=== PATIENT | female | born 1950 | race Caucasian/White ===

== ENCOUNTER → 2017-09-17 | Day surgery (SDC) | payer BC, MEDICARE ==
[2017-09-15 14:40] LABS: BASOPHILS # (AUTO) 0.1 (0.0-0.1); BASOPHILS % 0.7 % (0.0-1.0); EOSINOPHILS # (AUTO) 0.2 (0.0-0.4); EOSINOPHILS % 2.2 % (0.0-6.0); HEMATOCRIT 42.8 % (34.2-44.1); HEMOGLOBIN 14.1 g/dL (12.0-16.0); LYMPHOCYTES % 29.1 % (18.0-39.1); MEAN CORPUSCULAR HEMOGLOBIN 29.7 pg (28-32); MEAN CORPUSCULAR HGB CONC 32.9 g/dL (31-35); MEAN CORPUSCULAR VOLUME 90.3 fL (81-99); MONOCYTES # (AUTO) 0.5 (0.2-0.8); NEUTROPHILS % 59.7 % (38.7-80.0); PLATELET COUNT 239 x10e3/uL (140-360); RED BLOOD COUNT 4.74 x10e6/uL (3.6-5.1); RED CELL DISTRIBUTION WIDTH 12.7 % (11.7-14.4)
[~2017-09-17] MED LIST: COLESTIPOL HCL1 GM PO; CYTOMEL5 MCG PO; DEXILANT60 MG PO; FENTANYL CITRATE/PF 100MCG/2 ML INJ ONE; FLAGYL250 MG PO; HYOSCYAMINE SULFATE 0.5 MG/ML AMP ONE; LEVOTHYROXINE75 MCG PO; LIDOCAINE HCL 2% LOCAL INJ 5 ML SDV VIAL INJ ONE; LIOTHYRONINE SO5 MCG PO; METOCLOPRAMIDE10 MG PO; METOPROLOL TART50 MG PO; MIDAZOLAM HCL 2 MG/2 ML VIAL ONE; PROPOFOL IV EMULSION 10 MG/ML 50 ML VIAL ONE; RANITIDINE HCL300 MG PO; SUCRALFATE1 GM PO; linzess PO
[2017-09-17 13:55] LABS: WBC,FECAL (FECAL LACTOFERRIN) NEGATIVE (NEGATIVE)
[2017-09-17 15:07] LABS: C DIFFICILE TOXIN A&B AMP PROB NEGATIVE (NEGATIVE)
--- NOTE | 2017-09-18 11:43 | Operative Report ---
DATE OF PROCEDURE: September 17, 2017 PROCEDURES PERFORMED: 1. Esophagogastroduodenoscopy with biopsies and polypectomy. 2. Colonoscopy with biopsies and polypectomy. REFERRING PHYSICIAN: Dr. Pepe Mojica INDICATIONS FOR EGD: History of heartburn, indigestion, bloating. INDICATIONS FOR COLONOSCOPY: Colorectal cancer screening. Father and brother with colon cancer. Personal history of colon polyps. MEDICATION: Patient was done under MAC. Please see anesthesiologist note. PROCEDURE IN DETAIL: With the patient in left lateral decubitus position, the flexible fiberoptic Olympus gastroscope was introduced into the esophagus under direct visualization without any difficulty. There was some patchy erythema noted in distal esophagus. The scope was then advanced with ease into the stomach traversing a very large hiatal hernia approximately 8 cm in size. The mucosa overlying the antrum revealed some diffuse erythema and low-grade edema, and biopsies were obtained and sent to stain for H. pylori. Multiple polyps were noted in the body of the stomach, they were hyperplastic appearing and several were partially excised with cold biopsy forceps. The pylorus was of normal contour and shape. It was intubated with ease, and the scope was advanced all the way to the second portion of the duodenum. Biopsies were obtained from the proximal second portion to rule out sprue considering patient's history of diarrhea. The mucosa overlying the duodenal bulb appeared to be within normal limits. The scope was then withdrawn back into the stomach and retroflexed, and the previously described hiatal hernia was also noted in the retroflexed position. The scope was then straightened out. The stomach was decompressed. The scope was subsequently withdrawn. Patient tolerated the procedure well. IMPRESSION: 1. Distal esophagitis. 2. Large hiatal hernia, 8 cm in size. 3. Gastritis, biopsied. Biopsies sent to stain for Helicobacter pylori. 4. Gastric polyps, body, some partially excised with cold biopsy forceps. 5. Rule out sprue. PLAN: Follow up histology. Increase Dexilant to 60 mg 1 p.o. a.c. b.i.d. Patient was then turned around. After adequate lubrication of the anal canal, a flexible fiberoptic Olympus colonoscope was inserted into the rectum with ease and advanced all the way to the cecum. Mucosa overlying the cecum appeared to be within normal limits. The ileocecal valve was intubated, and the scope was advanced into her terminal ileum. Biopsies were obtained. The scope was then withdrawn back into the colon. It was then withdrawn slowly and 1 polyp was snared, 1 polyp was hot biopsied from the ascending colon. Three polyps were snared from the transverse colon. Mild patchy inflammatory changes were noted in the left colon and the rectum, multiple random biopsies were obtained. Anastomosis was noted at 30 cm from the anal verge and was intact. Three polyps were hot biopsied from the sigmoid colon. The scope was then retroflexed into the distal rectum, and small internal hemorrhoids were noted, none of which was actively bleeding. The scope was then straightened out. The rectosigmoid area as well as the distal rectal area were decompressed. The scope was subsequently withdrawn after securing an adequate stool specimen that was sent for the appropriate stool studies. Patient tolerated the procedure well. IMPRESSION: 1. Ascending colon polyps x2, 1 snared, 1 hot biopsied. 2. Transverse colon polyps x3, snared. 3. Mild patchy left-sided colitis, random biopsies obtained. 4. Anastomosis intact, sigmoid colon. 5. Proctitis, mild. 6. Internal hemorrhoids, none actively bleeding. PLAN: Follow up histology. Follow up stool studies. Initiate Bentyl 10 mg 1 p.o. t.i.d. VSL#3 DS 1 p.o. every day. Patient will need a followup colonoscopy in 1 year considering her family history. Job#: [id number] cc:PEPE MOJICA MD
== END | disposition home or self-care (01) ==
LOC: OR 10:38
PROVIDERS: ATTEND Internal Medicine Gastroenterology
DX: Z12.11 Encounter for screening for malignant neoplasm of colon (principal); D12.2 Benign neoplasm of ascending colon; D12.3 Benign neoplasm of transverse colon; K31.7 Polyp of stomach and duodenum; K29.70 Gastritis, unspecified, without bleeding; K51.50 Left sided colitis without complications; Z98.0 Intestinal bypass and anastomosis status; K20.9 Esophagitis, unspecified; K62.89 Other specified diseases of anus and rectum; K59.00 Constipation, unspecified; K21.9 Gastro-esophageal reflux disease without esophagitis; K44.9 Diaphragmatic hernia without obstruction or gangrene; K64.8 Other hemorrhoids; F41.9 Anxiety disorder, unspecified; Z01.810 Encounter for preprocedural cardiovascular examination; Z01.812 Encounter for preprocedural laboratory examination; Z80.0 Family history of malignant neoplasm of digestive organs
CPT/HCPCS: 36415; 43239; 45380; 45384; 45385; 83630; 83993; 85025; 87045; 87177; 87328; 87493; 93005; J1980; J2001; J2250

== ENCOUNTER → 2017-10-26 | Outpatient (CLI) | payer BC, MEDICARE ==
[~2017-10-26] MED LIST changes: -FENTANYL CITRATE/PF 100MCG/2 ML INJ ONE; -HYOSCYAMINE SULFATE 0.5 MG/ML AMP ONE; -LIDOCAINE HCL 2% LOCAL INJ 5 ML SDV VIAL INJ ONE; -MIDAZOLAM HCL 2 MG/2 ML VIAL ONE; -PROPOFOL IV EMULSION 10 MG/ML 50 ML VIAL ONE
--- NOTE | 2017-10-26 09:46 | Diagnostic Imaging Report ---
PROCEDURE:ABDOMINAL ULTRASOUND COMPARISON:02/09/2017 CT abdomen and pelvis. INDICATIONS:Abdomen Pain TECHNIQUE: Eckert-scale and color sonographic images were obtained of the abdomen in transverse and sagittal planes. FINDINGS: Liver: 15.4 cm in length in the right midclavicular line. Ovoid anechoic structures are identified scattered throughout the left lobe as shown on comparison CT. Normal parenchymal echogenicity. No intrahepatic biliary ductal dilatation. Main portal vein: 1.1 cm in caliber, hepatopetal flow Gallbladder: Surgically removed. Common Bile Duct: 0.5 cm in caliber. Right kidney: 10.2 cm in length, normal renal cortical echogenicity without hydronephrosis or calculus. Left kidney: 11 cm in length, normal renal cortical echogenicity without hydronephrosis or calculus. Spleen: 8.7 cm in length. Uniform parenchymal echotexture. Punctate calcifications are again noted. Pancreas: The visualized portions are unremarkable. Inferior vena cava: Patent Aorta: Non-aneurysmal Ascites: None CONCLUSION: Multiple hepatic cysts. Status post cholecystectomy. Otherwise unremarkable abdominal ultrasound. Dictated by: Venkatesh Cheng M.D. on 10/26/2017 at 9:55 Electronically approved by: Venkatesh Cheng M.D. on 10/26/2017 at 9:55
== END ==
LOC: US 08:49
PROVIDERS: ATTEND Internal Medicine Gastroenterology
DX: R10.9 Unspecified abdominal pain (principal)
CPT/HCPCS: 76700

== ENCOUNTER → 2018-06-02 | Outpatient (CLI) | payer BC, MEDICARE | LOC: MAMMO 10:23 | PROVIDERS: ATTEND Internal Medicine | DX: Z12.31 Encounter for screening mammogram for malignant neoplasm of breast (principal) | CPT/HCPCS: 77067 ==

== ENCOUNTER → 2019-08-20 | Outpatient (CLI) | payer BC, MEDICARE ==
[~2019-08-20] MED LIST changes: +DIATRIZOATE MEGL/DIATRIZOA SOD 30 ML BTL PO ONE; +IOPAMIDOL 370 MG/ML 200 ML INFUS..BTL INJ ONE; +SODIUM CHLORIDE 0.9% 50ML 50 ML ONE
[2019-08-20 14:32] LABS: BLOOD UREA NITROGEN 15 mg/dL (7-26); BUN/CREATININE RATIO 21 (6-25); CREATININE, SERUM 0.73 mg/dL (0.57-1.11); EST GLOMERULAR FILTRATION RATE > 60 ML/MIN (60-)
--- NOTE | 2019-08-20 16:08 | Diagnostic Imaging Report ---
EXAM: CT Abdomen and Pelvis WITH intravenous contrast INDICATION: Right upper quadrant pain COMPARISON: None. TECHNIQUE: Abdomen and pelvis were scanned utilizing a multidetector helical scanner from the lung base to the pubic symphysis after administration of IV contrast. Coronal and sagittal reformations were obtained. Routine protocol was performed. Scan was performed during portal venous phase. IV CONTRAST: 100mL of Isovue 370 ORAL CONTRAST: Gastrografin RADIATION DOSE: Total DLP: 367.9 mGy*cm Dose modulation, iterative reconstruction, and/or weight based adjustment of the mA/kV was utilized to reduce the radiation dose to as low as reasonably achievable. FINDINGS: LOWER THORAX: Large sliding hiatal hernia with approximately half of the stomach above the diaphragm. HEPATOBILIARY: Diffuse hepatic steatosis. Multiple subcentimeter right and left hepatic hypodensities measure soft tissue attenuation and are too small to adequately characterize on this single phase study. No biliary ductal dilation. Status post cholecystectomy. SPLEEN: Subcentimeter calcified granulomas in the nonenlarged spleen. PANCREAS: No focal masses or ductal dilatation. ADRENALS: No adrenal nodules. KIDNEYS/URETERS: No hydronephrosis, stones, or solid mass lesions. PELVIC ORGANS/BLADDER: Unremarkable. PERITONEUM / RETROPERITONEUM: No free air or fluid. LYMPH NODES: No lymphadenopathy. VESSELS: Atherosclerotic calcifications of the nonaneurysmal abdominal aorta and major branches. GI TRACT: No abnormal bowel wall thickening. No bowel obstruction. Postoperative changes of the colon with left colon anastomosis. BONES AND SOFT TISSUES: No acute fracture or dislocation. No suspicious lytic or blastic lesions. Degenerative changes of the visualized spine. IMPRESSION: Diffuse hepatic steatosis. Multiple subcentimeter right and left hepatic hypodensities measure soft tissue attenuation but are too small to adequately characterize on this single phase study. If there is history of primary malignancy and concern for metastatic disease, recommend MRI of the liver with and without gadolinium contrast. Large sliding hiatal hernia with approximately half of the stomach above the diaphragm. Signed by: Padmaja Chavira MD on 08/20/2019 4:05 PM
== END ==
LOC: CT 13:38
PROVIDERS: ATTEND Internal Medicine Gastroenterology
DX: R10.11 Right upper quadrant pain (principal); K44.9 Diaphragmatic hernia without obstruction or gangrene; K76.0 Fatty (change of) liver, not elsewhere classified
CPT/HCPCS: 36415; 74177; 82565; 84520; Q9967

== ENCOUNTER → 2019-09-06 | Outpatient (CLI) | payer BC, MEDICARE ==
[~2019-09-06] MED LIST changes: -DIATRIZOATE MEGL/DIATRIZOA SOD 30 ML BTL PO ONE; +GADOBENATE DIMEGLUMINE 1 ML IV ONE; -IOPAMIDOL 370 MG/ML 200 ML INFUS..BTL INJ ONE
[2019-09-06 14:00] LABS: BLOOD UREA NITROGEN 17 mg/dL (7-26); BUN/CREATININE RATIO 25 (6-25); CREATININE, SERUM 0.68 mg/dL (0.57-1.11); EST GLOMERULAR FILTRATION RATE > 60 ML/MIN (60-)
--- NOTE | 2019-09-07 09:02 | Diagnostic Imaging Report ---
MRI OF THE ABDOMEN CLINICAL HISTORY: Multiple right and left hepatic hypodensities TECHNIQUE: Multiplanar and multisequence MR images of the abdomen are obtained before and after intravenous contrast administration. COMPARISON: CT of the abdomen and pelvis performed 08/20/2019 DISCUSSION: LIVER: There is diffuse hepatic steatosis. Multiple hepatic cysts are noted in both lobes of the liver which corresponds to the hypodense lesion seen on recent abdominal CT. The largest cyst is in the left hepatic lobe and measures 1.5 cm in diameter. No suspicious hepatic lesions are identified. There is no enhancement postcontrast administration. BILIARY: No intrahepatic or extrahepatic dilatation. Sepsis cholecystectomy. PANCREAS: No focal masses or ductal dilatation. SPLEEN: Unremarkable. ADRENALS: No adrenal nodules. KIDNEYS: Normal in size. No hydronephrosis or renal masses. LYMPH NODES: No lymphadenopathy VESSELS: Patent portal vein. The abdominal aorta is nonaneurysmal. BONES AND SOFT TISSUES: No suspicious lesions. IMPRESSION: Multiple hepatic cysts. No suspicious hepatic lesions identified. Signed by: Jamie Murphy MD on 09/07/2019 8:58 AM
== END ==
LOC: MRI 12:59
PROVIDERS: ATTEND Internal Medicine Gastroenterology
DX: K76.89 Other specified diseases of liver (principal)
CPT/HCPCS: 36415; 74183; 82565; 84520; A9577

== ENCOUNTER → 2019-12-21 | Outpatient (CLI) | payer BC, MEDICARE ==
[~2019-12-21] MED LIST changes: +ALPRAZOLAM0.25 MG PO; +ATORVASTATIN CA20 MG PO; -GADOBENATE DIMEGLUMINE 1 ML IV ONE; -SODIUM CHLORIDE 0.9% 50ML 50 ML ONE
[2019-12-21 09:00] LABS: BASOPHILS # (AUTO) 0.1 (0.0-0.1); EOSINOPHILS # (AUTO) 0.1 (0.0-0.4); EOSINOPHILS % 1.3 % (0.0-6.0); HEMATOCRIT 45.4 % (34.2-44.1); HEMOGLOBIN 14.5 g/dL (12.0-16.0); LYMPHOCYTES # (AUTO) 2.1 (1.0-3.2); LYMPHOCYTES % 29.6 % (18.0-39.1); MEAN CORPUSCULAR HEMOGLOBIN 29.6 pg (28-32); MEAN CORPUSCULAR HGB CONC 31.9 g/dL (31-35); MEAN CORPUSCULAR VOLUME 92.7 fL (81-99); MONOCYTES # (AUTO) 0.6 (0.2-0.8); MONOCYTES % 8.6 % (4.4-11.3); NEUTROPHILS # (AUTO) 4.2 (2.1-6.9); NEUTROPHILS % 58.9 % (38.7-80.0); PLATELET COUNT 284 x10e3/uL (140-360); RED CELL DISTRIBUTION WIDTH 12.8 % (11.7-14.4)
--- NOTE | 2019-12-21 09:10 | Diagnostic Imaging Report ---
EXAMINATION: CHEST 2 VIEWS INDICATION: Pre-operative COMPARISON: Abdomen and pelvis CT of 08/20/2019 FINDINGS: LINES/TUBES:None LUNGS:The lungs are hyperinflated. Bilateral emphysematous changes. 7 mm right lower lobe calcified granuloma. Mild biapical pleural parenchymal thickening/scarring. No focal consolidation or pulmonary edema. PLEURA:No pleural effusion or pneumothorax. MEDIASTINUM:The cardiomediastinal silhouette appears normal in size and shape. Atherosclerotic calcifications of the thoracic aorta. BONES/SOFT TISSUES:No acute osseous injury. Left shoulder arthroplasty hardware. ABDOMEN:No free air under the diaphragm. IMPRESSION: Hyperinflated lungs with emphysematous changes. No focal pneumonia or pulmonary edema. Signed by: Padmaja Chavira MD on 12/21/2019 9:07 AM
[2019-12-21 09:42] LABS: ANION GAP 12.6 mmol/L (8-16); BLOOD UREA NITROGEN 16 mg/dL (7-26); BUN/CREATININE RATIO 21 (6-25); CALCIUM 9.7 mg/dL (8.4-10.2); CARBON DIOXIDE 25 mmol/L (22-29); CHLORIDE 104 mmol/L (98-107); CREATININE, SERUM 0.75 mg/dL (0.57-1.11); EST GLOMERULAR FILTRATION RATE > 60 ML/MIN (60-); GLUCOSE 84 mg/dL (74-118); POTASSIUM 3.6 mmol/L (3.5-5.1); SODIUM 138 mmol/L (136-145)
== END ==
LOC: RAD 05:00 → EDSTATUS 12-24 07:30
PROVIDERS: ATTEND Surgery
DX: Z01.818 Encounter for other preprocedural examination (principal); K44.9 Diaphragmatic hernia without obstruction or gangrene; K21.9 Gastro-esophageal reflux disease without esophagitis
CPT/HCPCS: 36415; 71046; 80048; 85025; 93005

== ENCOUNTER 2020-02-13 05:54 | Inpatient (IN) | payer BC, MEDICARE, OTHER ==
[2020-02-08 13:33] LABS: BASOPHILS # (AUTO) 0.1 (0.0-0.1); BASOPHILS % 0.7 % (0.0-1.0); EOSINOPHILS # (AUTO) 0.2 (0.0-0.4); EOSINOPHILS % 2.4 % (0.0-6.0); HEMOGLOBIN 12.8 g/dL (12.0-16.0); LYMPHOCYTES # (AUTO) 1.9 (1.0-3.2); LYMPHOCYTES % 27.7 % (18.0-39.1); MEAN CORPUSCULAR HEMOGLOBIN 29.1 pg (28-32); MEAN CORPUSCULAR VOLUME 90.9 fL (81-99); MONOCYTES # (AUTO) 0.6 (0.2-0.8); MONOCYTES % 9.3 % (4.4-11.3); NEUTROPHILS % 59.6 % (38.7-80.0); PLATELET COUNT 275 x10e3/uL (140-360); RED CELL DISTRIBUTION WIDTH 12.7 % (11.7-14.4)
[2020-02-08 13:54] LABS: ANION GAP 11.5 mmol/L (8-16); BLOOD UREA NITROGEN 16 mg/dL (7-26); BUN/CREATININE RATIO 24 (6-25); CALCIUM 9.5 mg/dL (8.4-10.2); CARBON DIOXIDE 28 mmol/L (22-29); CHLORIDE 105 mmol/L (98-107); CREATININE, SERUM 0.68 mg/dL (0.57-1.11); EST GLOMERULAR FILTRATION RATE > 60 ML/MIN (60-); GLUCOSE 90 mg/dL (74-118); POTASSIUM 4.5 mmol/L (3.5-5.1); SODIUM 140 mmol/L (136-145)
[~2020-02-13] VITALS: Ht 172.7 cm; Wt 76.8 kg
--- NOTE | 2020-02-13 07:12 | NUR ---
SPIRITUAL CARE - Pre-Surgery Assessment: Pt in bed. Pt reported supportive attention from family and friends. Intervention: I provided pastoral presence, hospitality, sympathetic listening, and prayer. I acquainted pt with availability of trestle mechanic while hospitalized. Outcome: Pt expressed appreciation for visit. No need for follow up indicated at this time. GERA [facility]udezlain Spiritual Care Department O: [phone]
[2020-02-13] MEDS ORDERED: BUPIVACAINE 0.25% 30ML SDV INJ ONE (12:36)
[2020-02-13] MEDS ORDERED: SUGAMMADEX SODIUM 200 MG/2 ML VIAL IV ONE (12:55)
[2020-02-13] MEDS ORDERED: PROMETHAZINE HCL (IM) 25 MG/ML VIAL ONE (13:34)
[2020-02-13] MEDS ORDERED: ONDANSETRON HCL INJ 2MG/ML 2ML 2 MG/ML VIAL ONE ×2 (13:42→18:29)
[2020-02-13] MEDS ORDERED: METOCLOPRAMIDE HCL 10 MG/2ML VIAL ONE (13:42)
[2020-02-13] MEDS ORDERED: FENTANYL CITRATE/PF 100MCG/2 ML INJ ONE ×2 (13:50→19:03)
[2020-02-13] MEDS ORDERED: MEPERIDINE HCL INJ 25 MG/ML VIAL ONE (13:52)
[2020-02-13] MEDS ORDERED: ONDANSETRON HCL INJ 2MG/ML 2ML 2 MG/ML VIAL IV PRN (14:15)
--- NOTE | 2020-02-13 16:09 | Operative Report ---
DATE OF PROCEDURE: 02/13/2020 SURGEON: Yahir Agee MD PREOPERATIVE DIAGNOSES: Large hiatal hernia with rotational gastric volvulus and gastroesophageal reflux disease. POSTOPERATIVE DIAGNOSES: Large hiatal hernia with rotational gastric volvulus and gastroesophageal reflux disease. OPERATION PERFORMED: Laparoscopic repair of large paraesophageal hiatal hernia with Dannielle fundoplication. ASSISTANTS: 1. Sandoval Agee MD. 2. MELISSA Mccormack. ANESTHESIA: General. COMPLICATIONS: None. ESTIMATED BLOOD LOSS: Minimal. DESCRIPTION OF PROCEDURE: With the patient lying in bed in the supine position under general endotracheal anesthesia, the abdomen was prepped with Betadine solution and draped in the usual manner. A Veress needle was introduced into the right upper quadrant and pneumoperitoneum was established without any difficulty. A 5 mm trocar was placed in the right upper quadrant. A 5 mm video laparoscope was placed into the intraabdominal cavity. Under direct vision, two 5 mm trocars were placed in the subxiphoid region. The laparoscopy revealed that there was some adhesions to the mid abdomen. There was a small hernia in the left upper abdomen exactly where we needed to put a trocar, so all of this adhesions were taken down. An 11 mm trocar was then placed in the left mid abdomen and right through the small hernia sac that she had and a 10 mm video laparoscope was placed into the intraabdominal cavity. The liver was then retracted upwardly. Laparoscopy at this point, revealed the fact that the patient had a huge hiatal hernia with the bulk of her stomach up in the chest and it was partially twisted. The stomach was then slowly and carefully brought down. The peritoneum overlying the right crura was then opened and the hernia sac was then slowly and carefully divided in a circumferential fashion. The excess of the hernia sac was resected. After this was done, we had good circumferential access to the esophagus and the hiatus. A large bougie had been placed in the stomach already. The hiatal hernia was then repaired by approximating the right and left crura posteriorly using interrupted sutures of [address] around revealed this had a satisfactory repair. Again, the hernia was very large. The left crura were of good quality. The right crura was reasonable, but was not as good. All of the short gastrics had previously been taken down with Harmonic Scalpel and at this point, we went ahead and proceeded to do the Dannielle fundoplication. The fundus of the stomach was then brought in retroesophageal region to the right side and a nice floppy Dannielle fundoplication was created with three sutures of 0 Ethibond, bringing one side of the fundus to the lower esophagus to the other side of the fundus, this gives a satisfactory fundoplication without any tension. The bougie was then removed. NG tube was placed in appropriate position. The whole area was thoroughly irrigated. All the excess fluid was aspirated and perfect hemostasis was ascertained. The pneumoperitoneum was then evacuated and all the trocars were removed under direct vision. The hernia in the left upper abdomen was then closed with interrupted [id number] of 0 Vicryl, all layers were infiltrated on the way out in all wounds with 0.25% Marcaine. Subcutaneous tissue was approximated with 3-0 Vicryl and the skin was closed with subcuticular 5-0 Vicryl. Benzoin, Steri-Strips, and Band-Aids were applied. The sponge, lap, and needle counts were correct. The patient tolerated the procedure well and returned to the recovery room in stable condition. MD TREMAINE Carpenter/VEL /[id number]
[2020-02-13 16:40] VITALS: BP 150/73
[2020-02-13 16:41] VITALS: BP 150/73
[2020-02-13] MEDS: SODIUM CHLORIDE 0.9% 250ML IRRIG IR SCH ×3 (16:42→21:39)
[2020-02-13] MEDS: SODIUM CHLORIDE 0.9% 1000ML 1,000 ML IV SCH (17:13)
[2020-02-13] MEDS: PANTOPRAZOLE 40 MG 10ML VIAL IV SCH (17:17)
[2020-02-13] MEDS ORDERED: CEFAZOLIN SOD 1 GM VIAL ONE (18:29)
[2020-02-13] MEDS ORDERED: ROCURONIUM BROMIDE 10 MG/ML 5ML VIAL IV ONE (18:29)
[2020-02-13] MEDS ORDERED: LIDOCAINE HCL 2% LOCAL INJ 5 ML SDV VIAL INJ ONE (18:29)
[2020-02-13] MEDS ORDERED: DEXAMETHASONE SOD PHOS INJ 4 MG/ML VIAL ONE (18:29)
[2020-02-13] MEDS ORDERED: LABETALOL HCL 5 MG/ML 20ML VIAL ONE (18:29)
[2020-02-13] MEDS ORDERED: SEVOFLURANE INHAL SOLN 250 ML PEN BTL ONE (18:29)
[2020-02-13] MEDS ORDERED: PROPOFOL IV EMULSION 10 MG/ML 20 ML VIAL ONE (18:29)
[2020-02-13] MEDS: HYDROMORPHONE 1MG/1ML INJ IV PRN (19:56)
[2020-02-13 20:00] VITALS: BP_SYST 111; BP_SYST 120; BP_DIAS 55
--- NOTE | 2020-02-13 20:09 | NUR ---
SPOKE TO MD Olman MOREIRA REGARDING C/O CHEST PAIN. NO NEW ORDERS RECEIVED.
--- NOTE | 2020-02-13 20:58 | NUR ---
SPOKE TO RESPIRATORY REGARDING NEED FOR IS.
--- NOTE | 2020-02-13 23:19 | NUR ---
SPOKE TO RESPIRATORY REGARDING NEED FOR IS.
[2020-02-14] VITALS (7 sets, daily range): BP systolic 121–151; BP diastolic 57–74
[2020-02-14] MEDS: HYDROMORPHONE 1MG/1ML INJ IV PRN ×3 (00:16→09:51)
--- NOTE | 2020-02-14 00:51 | NUR ---
PROVIDED TEACHING REGARDING IS. VERBALIZED UNDERSTANDING AND DEMONSTRATED CORRECT USE.
[2020-02-14] MEDS: SODIUM CHLORIDE 0.9% 1000ML 1,000 ML IV SCH ×3 (03:28→20:15)
[2020-02-14] MEDS: SODIUM CHLORIDE 0.9% 250ML IRRIG IR SCH ×5 (04:30→18:06)
--- NOTE | 2020-02-14 04:50 | NUR ---
PROVIDED SCHUSTER CARE VIA NADYA SOAP WIPES. TOLERATED WELL. NO ADVERSE SIGNS.
[2020-02-14 05:54] LABS: BASOPHILS % 0.2 % (0.0-1.0); EOSINOPHILS % 0.1 % (0.0-6.0); HEMATOCRIT 35.6 % (34.2-44.1); HEMOGLOBIN 11.4 g/dL (12.0-16.0); LYMPHOCYTES # (AUTO) 1.3 (1.0-3.2); LYMPHOCYTES % 13.9 % (18.0-39.1); MEAN CORPUSCULAR HEMOGLOBIN 29.2 pg (28-32); MEAN CORPUSCULAR VOLUME 91.3 fL (81-99); MONOCYTES # (AUTO) 0.9 (0.2-0.8); MONOCYTES % 9.8 % (4.4-11.3); NEUTROPHILS # (AUTO) 7.1 (2.1-6.9); NEUTROPHILS % 75.7 % (38.7-80.0); PLATELET COUNT 244 x10e3/uL (140-360); RED CELL DISTRIBUTION WIDTH 12.9 % (11.7-14.4)
[2020-02-14 06:02] LABS: ANION GAP 9.7 mmol/L (8-16); BLOOD UREA NITROGEN 8 mg/dL (7-26); BUN/CREATININE RATIO 14 (6-25); CALCIUM 7.9 mg/dL (8.4-10.2); CARBON DIOXIDE 24 mmol/L (22-29); CHLORIDE 107 mmol/L (98-107); CREATININE, SERUM 0.58 mg/dL (0.57-1.11); EST GLOMERULAR FILTRATION RATE > 60 ML/MIN (60-); GLUCOSE 108 mg/dL (74-118); POTASSIUM 3.7 mmol/L (3.5-5.1); SODIUM 137 mmol/L (136-145)
--- NOTE | 2020-02-14 07:08 | NUR ---
REPORT GIVEN TO [facility] NURSE. RESTING IN BED. AAOX3. NO SIGNS OF IV INFILTRATION. SR UPX2. BED LOCKED AND IN LOW POSITION. CALL LIGHT WITHIN REACH.
--- NOTE | 2020-02-14 07:08 | NUR ---
BEDSIDE SHIFT REPORT RECEIVED FROM PM NURSE. PT AWAKE, NO SIGNS OF DISTRESS. WILL CONTINUE TO MONITOR.
[2020-02-14] MEDS: PANTOPRAZOLE 40 MG 10ML VIAL IV SCH (09:45)
[2020-02-14] MEDS: ACETAMINOPHEN 1000 MG/100 ML IV PRN (17:12)
--- NOTE | 2020-02-14 20:05 | NUR ---
D/C SCHUSTER CATHETER TIP INTACT. D/C NGT WITH TIP INTACT. PERFORMED ORAL CARE. NO ADVERSE SIGNS TOLERATED PROCEDURES WELL. SWELLING TO R HAND IV. D/C IV TO R HAND CATHETER TIP INTACT. L FA 22G IV PLACED. TOLERATED PROCEDURE WELL. CDI DRESSING APPLIED.
[2020-02-15] VITALS (11 sets, daily range): BP systolic 134–177; BP diastolic 63–72
[2020-02-15] MEDS: ACETAMINOPHEN 1000 MG/100 ML IV PRN ×2 (00:08→14:39)
[2020-02-15] MEDS: SODIUM CHLORIDE 0.9% 1000ML 1,000 ML IV SCH ×2 (07:00→16:15)
--- NOTE | 2020-02-15 07:05 | NUR ---
RCD PT AT BED PT IS ALERT AND ORIENTED PT RESTING ON BED IV PATENT PT NPO BED LOW AND LOCKED CALL LIGHT IN REACH
--- NOTE | 2020-02-15 07:10 | NUR ---
REPORT GIVEN TO [facility] NURSE. AAOX3. RESTING IN BED. BED LOCKED AND IN LOW POSITION. CALL LIGHT WITHIN REACH. NO SIGNS OF IV INFILTRATION. BED ALARM ACTIVATED.
[2020-02-15] MEDS: PANTOPRAZOLE 40 MG 10ML VIAL IV SCH (09:00)
--- NOTE | 2020-02-15 18:51 | NUR ---
PT RESTING ON BED BED SIDE REPORT GIVEN TO ONCOMING NURSE
--- NOTE | 2020-02-15 20:36 | NUR ---
SPOKE TO DR. Danny KENNEDY COVERING FOR DR. Penny KENNEDY AT THIS TIME REGARDING PT C/O HEADACHE. NEW ORDER RECEIVED TO RESTART TYLENOL IV 1000MG PRN Q6H.
[2020-02-15] MEDS ORDERED: ACETAMINOPHEN 1000 MG/100 ML IV PRN (20:45)
[2020-02-16 00:15] VITALS: BP 138/86
[2020-02-16 04:44] VITALS: BP 158/87
--- NOTE | 2020-02-16 07:10 | NUR ---
RCD PT AT BED PT IS ALERT AND ORIENTED PT RESTING ON BED IV PATENT BED LOW AND LOCKED CALL LIGHT IN REACH
[2020-02-16 08:39] VITALS: BP 161/78
[2020-02-16 08:42] VITALS: BP 161/78
[2020-02-16] MEDS: PANTOPRAZOLE 40 MG 10ML VIAL IV SCH (09:00)
[2020-02-16] MEDS ORDERED: TYLENOL WITH C1 EACH PO (11:59)
--- NOTE | 2020-02-16 12:45 | NUR ---
PT WENT HOME IN SAFE CONDITION WITH HER SON
== END 2020-02-16 12:45 | disposition home or self-care (01) | DRG 328 ==
LOC: OR 05:54 → PACU V 14:09 → MED/SURG 15:33
PROVIDERS: ADMIT Surgery; ATTEND Surgery
PROC: 0DV44ZZ Restriction of Esophagogastric Junction, Percutaneous Endoscopic Approach (ICD-10-PCS; 2020-02-13)
PROC: 0BQT4ZZ Repair Diaphragm, Percutaneous Endoscopic Approach (ICD-10-PCS; principal; 2020-02-13 09:58)
DX: K44.9 Diaphragmatic hernia without obstruction or gangrene (principal); K21.9 Gastro-esophageal reflux disease without esophagitis; E03.9 Hypothyroidism, unspecified
CPT/HCPCS: 36415; 80048; 85025; 87635; J0690; J1100; J1170; J2001; J2175; J2405; J2550; J2765; J3010; J7030

== ENCOUNTER → 2020-03-13 | Outpatient (CLI) | payer BC, MEDICARE ==
[~2020-03-13] MED LIST changes: +TYLENOL WITH C1 EACH PO
== END ==
LOC: MAMMO 15:16
PROVIDERS: ATTEND Internal Medicine
DX: Z12.31 Encounter for screening mammogram for malignant neoplasm of breast (principal)
CPT/HCPCS: 77067

== ENCOUNTER 2020-09-14 10:07 | Inpatient (IN) | payer BC, MEDICARE ==
[~2020-09-14] VITALS: Ht 172.7 cm; Wt 64.0 kg
[2020-09-14] MEDS ORDERED: SODIUM CHLORIDE 0.9% 1000ML 1,000 ML IV STA (10:31)
[2020-09-14 11:02] LABS: BASOPHILS % 0.6 % (0.0-1.0); EOSINOPHILS # (AUTO) 0.1 (0.0-0.4); HEMATOCRIT 39.6 % (34.2-44.1); HEMOGLOBIN 12.8 g/dL (12.0-16.0); LYMPHOCYTES # (AUTO) 1.5 (1.0-3.2); LYMPHOCYTES % 23.2 % (18.0-39.1); MEAN CORPUSCULAR HEMOGLOBIN 29.2 pg (28-32); MEAN CORPUSCULAR HGB CONC 32.3 g/dL (31-35); MEAN CORPUSCULAR VOLUME 90.2 fL (81-99); MONOCYTES # (AUTO) 0.5 (0.2-0.8); NEUTROPHILS # (AUTO) 4.2 (2.1-6.9); PLATELET COUNT 245 x10e3/uL (140-360); RED BLOOD COUNT 4.39 x10e6/uL (3.6-5.1); RED CELL DISTRIBUTION WIDTH 12.6 % (11.7-14.4)
[2020-09-14 11:14] LABS: INR 0.93; PARTIAL THROMBOPLASTIN TIME 26.9 seconds (23.8-35.5); PROTHROMBIN TIME 12.9 seconds (11.9-14.5)
[2020-09-14 11:24] LABS: ALANINE AMINOTRANSFERASE 11 IU/L (0-55); ALBUMIN 3.8 g/dL (3.5-5.0); ALBUMIN/GLOBULIN RATIO 1.3 (0.8-2.0); ALKALINE PHOSPHATASE 69 IU/L (40-150); ANION GAP 10.7 mmol/L (8-16); BLOOD UREA NITROGEN 13 mg/dL (7-26); BUN/CREATININE RATIO 20 (6-25); CALCIUM 8.9 mg/dL (8.4-10.2); CARBON DIOXIDE 27 mmol/L (22-29); CHLORIDE 106 mmol/L (98-107); CREATINE KINASE 58 IU/L (29-168); CREATININE, SERUM 0.64 mg/dL (0.57-1.11); EST GLOMERULAR FILTRATION RATE > 60 ML/MIN (60-); GLUCOSE 122 mg/dL (74-118); MAGNESIUM 1.8 MG/DL (1.3-2.1); POTASSIUM 3.7 mmol/L (3.5-5.1); SODIUM 140 mmol/L (136-145)
[2020-09-14 11:37] LABS: COLOR,URINE YELLOW (YELLOW)
[2020-09-14 11:38] LABS: CLARITY,URINE SL CLOUDY (CLEAR); KETONES,URINE NEGATIVE (NEGATIVE); LEUKOCYTE ESTERASE ,URINE TRACE (NEGATIVE); NITRITE,URINE NEGATIVE (NEGATIVE); PROTEIN,URINE DIPSTICK NEGATIVE (NEGATIVE); URINE UROBILINOGEN 0.2 mg/dL (0.2 - 1)
[2020-09-14 11:39] LABS: AMPHETAMINES SCREEN,URINE NEGATIVE (NEGATIVE); BENZODIAZEPINES SCREEN,URINE NEGATIVE (NEGATIVE); PHENCYCLIDINE SCREEN,URINE NEGATIVE (NEGATIVE)
[2020-09-14 11:48] LABS: BACTERIA,URINE FEW /HPF; EPITHELIAL CELLS,URINE FEW /LPF; RBC,URINE 0-5 /HPF (0-5)
[2020-09-14] MEDS ORDERED: ONDANSETRON HCL INJ 2MG/ML 2ML 2 MG/ML VIAL IV NR (12:15)
[2020-09-14] MEDS ORDERED: ONDANSETRON HCL INJ 2MG/ML 2ML 2 MG/ML VIAL IV PRN (13:00)
[2020-09-14] MEDS ORDERED: D5NS/KCL 20MEQ 1,000 ML IV ONE (13:00)
[2020-09-14] MEDS: CEFTRIAXONE SOD 1 GM/NS 50 ML 50 ML IV SCH (13:00)
[2020-09-14] MEDS: FAMOTIDINE 20 MG/2 ML VIAL IV SCH (13:47)
[2020-09-14 14:31] VITALS: BP 145/64
[2020-09-14 14:52] VITALS: BP 145/64
[2020-09-14 20:00] VITALS: BP 125/54
[2020-09-14 21:00] VITALS: BP 125/54
[2020-09-15] VITALS (8 sets, daily range): BP systolic 129–147; BP diastolic 61–76
[2020-09-15] MEDS: FAMOTIDINE 20 MG/2 ML VIAL IV SCH ×3 (01:59→13:40)
[2020-09-15 02:45] LABS: CREATINE KINASE MB 0.8 ng/mL (0-5.0)
[2020-09-15] MEDS ORDERED: ALPRAZOLAM 0.5 MG TAB PO PRN (03:45)
[2020-09-15] MEDS: ACETAMINOPHEN 325 MG TAB PO PRN ×2 (04:58→13:37)
[2020-09-15] MEDS: LEVOTHYROXINE SODIUM 75 MCG TAB PO SCH (05:09)
[2020-09-15] MEDS: LIOTHYRONINE SODIUM 5 MCG TAB PO SCH ×2 (05:24→09:00)
[2020-09-15 05:52] LABS: BASOPHILS # (AUTO) 0.1 (0.0-0.1); BASOPHILS % 1.2 % (0.0-1.0); EOSINOPHILS # (AUTO) 0.3 (0.0-0.4); EOSINOPHILS % 5.3 % (0.0-6.0); HEMATOCRIT 36.2 % (34.2-44.1); HEMOGLOBIN 11.6 g/dL (12.0-16.0); LYMPHOCYTES # (AUTO) 1.4 (1.0-3.2); LYMPHOCYTES % 28.2 % (18.0-39.1); MEAN CORPUSCULAR HEMOGLOBIN 29.3 pg (28-32); MEAN CORPUSCULAR VOLUME 91.4 fL (81-99); MONOCYTES # (AUTO) 0.4 (0.2-0.8); MONOCYTES % 8.2 % (4.4-11.3); NEUTROPHILS # (AUTO) 2.8 (2.1-6.9); NEUTROPHILS % 56.7 % (38.7-80.0); PLATELET COUNT 186 x10e3/uL (140-360); RED BLOOD COUNT 3.96 x10e6/uL (3.6-5.1); RED CELL DISTRIBUTION WIDTH 12.9 % (11.7-14.4)
[2020-09-15 06:24] LABS: ALANINE AMINOTRANSFERASE 9 IU/L (0-55); ALBUMIN 2.9 g/dL (3.5-5.0); ALBUMIN/GLOBULIN RATIO 1.1 (0.8-2.0); ALKALINE PHOSPHATASE 62 IU/L (40-150); ANION GAP 9.8 mmol/L (8-16); BLOOD UREA NITROGEN 9 mg/dL (7-26); BUN/CREATININE RATIO 16 (6-25); CALCIUM 7.7 mg/dL (8.4-10.2); CARBON DIOXIDE 23 mmol/L (22-29); CHLORIDE 113 mmol/L (98-107); CREATININE, SERUM 0.56 mg/dL (0.57-1.11); EST GLOMERULAR FILTRATION RATE > 60 ML/MIN (60-); GLUCOSE 99 mg/dL (74-118); POTASSIUM 3.8 mmol/L (3.5-5.1); SODIUM 142 mmol/L (136-145)
[2020-09-15 07:25] LABS: CREATINE KINASE MB 0.7 ng/mL (0-5.0)
[2020-09-15] MEDS: PANTOPRAZOLE SOD 40 MG TABEC PO SCH (07:30)
[2020-09-15] MEDS ORDERED: IOPAMIDOL 370 MG/ML 200 ML INFUS..BTL INJ ONE (08:29)
[2020-09-15] MEDS ORDERED: SODIUM CHLORIDE 0.9% 50ML 50 ML ONE (08:29)
[2020-09-15] MEDS ORDERED: LIOTHYRONINE SODIUM 5 MCG TAB PO SCH (09:00)
[2020-09-15] MEDS: CEFTRIAXONE SOD 1 GM/NS 50 ML 50 ML IV SCH (13:28)
[2020-09-16] VITALS (10 sets, daily range): BP systolic 120–160; BP diastolic 63–71
[2020-09-16] MEDS: FAMOTIDINE 20 MG/2 ML VIAL IV SCH ×2 (00:26→12:56)
[2020-09-16] MEDS: METRONIDAZOLE 500 MG TAB PO SCH ×3 (05:31→21:39)
[2020-09-16] MEDS: LEVOTHYROXINE SODIUM 75 MCG TAB PO SCH (05:31)
[2020-09-16] MEDS: PANTOPRAZOLE SOD 40 MG TABEC PO SCH (08:32)
[2020-09-16] MEDS: LIOTHYRONINE SODIUM 5 MCG TAB PO SCH (08:32)
[2020-09-16] MEDS: ACETAMINOPHEN 325 MG TAB PO PRN ×2 (09:45→20:37)
[2020-09-16] MEDS: CEFTRIAXONE SOD 1 GM/NS 50 ML 50 ML IV SCH (12:52)
[2020-09-17] VITALS (7 sets, daily range): BP systolic 108–143; BP diastolic 50–71
[2020-09-17] MEDS: FAMOTIDINE 20 MG/2 ML VIAL IV SCH ×2 (01:25→13:00)
[2020-09-17] MEDS: LEVOTHYROXINE SODIUM 75 MCG TAB PO SCH (05:24)
[2020-09-17] MEDS: METRONIDAZOLE 500 MG TAB PO SCH ×3 (05:24→22:49)
[2020-09-17] MEDS: LIOTHYRONINE SODIUM 5 MCG TAB PO SCH (07:17)
[2020-09-17] MEDS: PANTOPRAZOLE SOD 40 MG TABEC PO SCH (07:17)
[2020-09-17] MEDS: CEFTRIAXONE SOD 1 GM/NS 50 ML 50 ML IV SCH (12:15)
[2020-09-17] MEDS: DICYCLOMINE HCL 20 MG TAB PO SCH (20:57)
[2020-09-18] VITALS: BP 120/62
[2020-09-18] MEDS: FAMOTIDINE 20 MG/2 ML VIAL IV SCH ×2 (01:55→12:12)
[2020-09-18 04:00] VITALS: BP 126/61
[2020-09-18] MEDS: LEVOTHYROXINE SODIUM 75 MCG TAB PO SCH (06:03)
[2020-09-18] MEDS: METRONIDAZOLE 500 MG TAB PO SCH ×2 (06:41→14:48)
[2020-09-18 08:06] VITALS: BP 137/67
[2020-09-18] MEDS: PANTOPRAZOLE SOD 40 MG TABEC PO SCH (08:25)
[2020-09-18] MEDS: LIOTHYRONINE SODIUM 5 MCG TAB PO SCH (08:25)
[2020-09-18] MEDS: DICYCLOMINE HCL 20 MG TAB PO SCH ×3 (08:25→17:32)
[2020-09-18 09:21] VITALS: BP 137/67
[2020-09-18] MEDS: CEFTRIAXONE SOD 1 GM/NS 50 ML 50 ML IV SCH (12:18)
[2020-09-18] MEDS ORDERED: SODIUM CHLORIDE 0.9% 250ML 250 ML ONE (12:21)
[2020-09-18 12:29] VITALS: BP 123/65
[2020-09-18] MEDS ORDERED: ONDANSETRON HCL 4 MG ORAL DISINTEGRATING TAB PO PRN (14:15)
[2020-09-18] MEDS: ACETAMINOPHEN 325 MG TAB PO PRN (15:10)
[2020-09-18 16:55] VITALS: BP 123/59
[2020-09-18] MEDS ORDERED: bentyl PO (18:56)
== END 2020-09-18 19:56 | disposition home or self-care (01) | DRG 312 ==
LOC: ER 10:15 → ERHOLD 13:01 → MED/SURG 14:15 → IMCU 09-15 15:34 → OBSVTOIN 09-16 09:01 → MED/SURG 09-16 15:05
PROVIDERS: ADMIT Internal Medicine; ATTEND Internal Medicine
DX: R55 Syncope and collapse (principal); N39.0 Urinary tract infection, site not specified; F41.9 Anxiety disorder, unspecified; I10 Essential (primary) hypertension; E03.9 Hypothyroidism, unspecified; Z20.828 Contact with and (suspected) exposure to other viral communicable diseases; K44.9 Diaphragmatic hernia without obstruction or gangrene; K21.9 Gastro-esophageal reflux disease without esophagitis; D64.9 Anemia, unspecified; K29.70 Gastritis, unspecified, without bleeding; K52.9 Noninfective gastroenteritis and colitis, unspecified
CPT/HCPCS: 36415; 70450; 71045; 72125; 74177; 74246; 74250; 80053; 80307; 81001; 82550; 82553; 83735; 84484; 85025; 85610; 85730; 87086; 93005; 93306; 93880; 96376; 99284; G0378; J0696; J2405; J7050; Q9967; U0002

== ENCOUNTER → 2021-02-27 | Outpatient (CLI) | payer BC, MEDICARE ==
[~2021-02-27] MED LIST changes: +bentyl PO
== END ==
LOC: CT 15:45
PROVIDERS: ATTEND Internal Medicine Gastroenterology
DX: R10.10 Upper abdominal pain, unspecified (principal); R19.7 Diarrhea, unspecified
CPT/HCPCS: 74177

== ENCOUNTER 2021-04-01 13:37 | Inpatient (IN) | payer BC, MEDICARE ==
[~2021-04-01] VITALS: Ht 162.6 cm; Wt 55.8 kg
[2021-04-01 14:37] LABS: BASOPHILS # (AUTO) 0.1 (0.0-0.1); BASOPHILS % 0.8 % (0.0-1.0); EOSINOPHILS # (AUTO) 0.1 (0.0-0.4); EOSINOPHILS % 1.1 % (0.0-6.0); HEMATOCRIT 42.2 % (34.2-44.1); HEMOGLOBIN 13.5 g/dL (12.0-16.0); LYMPHOCYTES # (AUTO) 1.6 (1.0-3.2); LYMPHOCYTES % 16.9 % (18.0-39.1); MEAN CORPUSCULAR HEMOGLOBIN 29.7 pg (28-32); MEAN CORPUSCULAR VOLUME 92.7 fL (81-99); MONOCYTES # (AUTO) 0.6 (0.2-0.8); MONOCYTES % 6.2 % (4.4-11.3); NEUTROPHILS # (AUTO) 7.2 (2.1-6.9); NEUTROPHILS % 74.7 % (38.7-80.0); PLATELET COUNT 276 x10e3/uL (140-360); RED BLOOD COUNT 4.55 x10e6/uL (3.6-5.1); RED CELL DISTRIBUTION WIDTH 12.9 % (11.7-14.4)
[2021-04-01] MEDS ORDERED: DIATRIZOATE MEGL/DIATRIZOA SOD 30 ML BTL PO ONE (14:47)
[2021-04-01 14:59] LABS: ALBUMIN 4.3 g/dL (3.5-5.0); ALBUMIN/GLOBULIN RATIO 1.3 (0.8-2.0); ANION GAP 10.1 mmol/L (8-16); CREATININE, SERUM 0.71 mg/dL (0.57-1.11); POTASSIUM 4.1 mmol/L (3.5-5.1)
[2021-04-01] MEDS ORDERED: ONDANSETRON HCL INJ 2MG/ML 2ML 2 MG/ML VIAL IV STA (15:20)
[2021-04-01] MEDS ORDERED: MORPHINE SULFATE INJ 4 MG/ML INJ 1ML IV PRN (15:30)
[2021-04-01] MEDS ORDERED: IOPAMIDOL 370 MG/ML 200 ML INFUS..BTL INJ ONE (16:24)
[2021-04-01 17:03] LABS: CLARITY,URINE CLEAR (CLEAR); COLOR,URINE YELLOW (YELLOW)
[2021-04-01 17:04] LABS: KETONES,URINE NEGATIVE (NEGATIVE); LEUKOCYTE ESTERASE ,URINE TRACE (NEGATIVE); NITRITE,URINE NEGATIVE (NEGATIVE); PROTEIN,URINE DIPSTICK NEGATIVE (NEGATIVE); URINE UROBILINOGEN 0.2 mg/dL (0.2 - 1)
[2021-04-01] MEDS ORDERED: LEVOFLOXACIN 500MG/D5W 100ML 100 ML IV SCH (17:15)
[2021-04-01 17:27] LABS: BACTERIA,URINE RARE /HPF; EPITHELIAL CELLS,URINE MODERATE /LPF; RBC,URINE 0-5 /HPF (0-5)
[2021-04-01] MEDS: SODIUM CHLORIDE 0.9% 1000ML 1,000 ML IV SCH (17:30)
[2021-04-01] MEDS ORDERED: DIPHENHYDRAMINE HCL INJ 50 MG/ML VIAL IV PRN (17:45)
[2021-04-01] MEDS: METRONIDAZOLE 750MG/NS 150ML 150 ML IV SCH (18:00)
[2021-04-01 19:42] VITALS: BP 117/52
[2021-04-01 19:58] VITALS: BP 117/52
[2021-04-01] MEDS: ONDANSETRON HCL INJ 2MG/ML 2ML 2 MG/ML VIAL IV PRN (20:21)
[2021-04-01 20:37] VITALS: BP 117/52
[2021-04-01] MEDS: MORPHINE SULFATE INJ 4 MG/ML INJ 1ML IV PRN ×2 (21:20→21:59)
[2021-04-02] VITALS (8 sets, daily range): BP systolic 114–158; BP diastolic 53–69
[2021-04-02] MEDS: MORPHINE SULFATE INJ 4 MG/ML INJ 1ML IV PRN (01:08)
[2021-04-02] MEDS: ONDANSETRON HCL INJ 2MG/ML 2ML 2 MG/ML VIAL IV PRN ×4 (01:08→17:33)
[2021-04-02] MEDS: SODIUM CHLORIDE 0.9% 1000ML 1,000 ML IV SCH ×2 (03:13→13:25)
[2021-04-02] MEDS ORDERED: ACETAMINOPHEN 1000 MG/100 ML IV PRN (05:15)
[2021-04-02] MEDS: HYDROMORPHONE 1MG/1ML INJ IV PRN ×2 (05:30→10:56)
[2021-04-02 06:10] LABS: BASOPHILS % 0.5 % (0.0-1.0); EOSINOPHILS % 0.4 % (0.0-6.0); HEMATOCRIT 35.9 % (34.2-44.1); HEMOGLOBIN 11.7 g/dL (12.0-16.0); LYMPHOCYTES # (AUTO) 1.1 (1.0-3.2); LYMPHOCYTES % 15.2 % (18.0-39.1); MEAN CORPUSCULAR HEMOGLOBIN 30.3 pg (28-32); MEAN CORPUSCULAR HGB CONC 32.6 g/dL (31-35); MONOCYTES # (AUTO) 0.5 (0.2-0.8); MONOCYTES % 7.2 % (4.4-11.3); NEUTROPHILS # (AUTO) 5.6 (2.1-6.9); NEUTROPHILS % 76.3 % (38.7-80.0); PLATELET COUNT 235 x10e3/uL (140-360); RED BLOOD COUNT 3.86 x10e6/uL (3.6-5.1); RED CELL DISTRIBUTION WIDTH 12.8 % (11.7-14.4)
[2021-04-02 06:52] LABS: ANION GAP 9.8 mmol/L (8-16); CALCIUM 7.8 mg/dL (8.4-10.2); CREATININE, SERUM 0.58 mg/dL (0.57-1.11); POTASSIUM 3.8 mmol/L (3.5-5.1)
[2021-04-02] MEDS: CEFEPIME 1 GM in SODIUM CHLORIDE 0.9% 50ML 50 ML IV SCH ×2 (08:14→20:33)
[2021-04-02] MEDS: LORAZEPAM INJ 2 MG/ML VIAL IV PRN ×2 (13:25→20:33)
[2021-04-02] MEDS: METRONIDAZOLE 750MG/NS 150ML 150 ML IV SCH (17:31)
[2021-04-03] VITALS (7 sets, daily range): BP systolic 148–167; BP diastolic 66–80
[2021-04-03] MEDS: SODIUM CHLORIDE 0.9% 1000ML 1,000 ML IV SCH ×3 (00:26→23:48)
[2021-04-03] MEDS ORDERED: DICYCLOMINE HCL 20 MG TAB PO ONE (02:00)
[2021-04-03] MEDS: ONDANSETRON HCL INJ 2MG/ML 2ML 2 MG/ML VIAL IV PRN ×4 (02:58→15:41)
[2021-04-03] MEDS: CEFEPIME 1 GM in SODIUM CHLORIDE 0.9% 50ML 50 ML IV SCH ×2 (08:56→20:43)
[2021-04-03] MEDS: DICYCLOMINE HCL 10 MG CAP PO SCH ×3 (08:56→20:43)
[2021-04-03] MEDS: METRONIDAZOLE 750MG/NS 150ML 150 ML IV SCH (18:04)
[2021-04-04] VITALS (8 sets, daily range): BP systolic 120–168; BP diastolic 64–78
[2021-04-04] MEDS: METOCLOPRAMIDE HCL 10 MG/2ML VIAL IV SCH ×3 (06:00→17:23)
[2021-04-04] MEDS: CEFEPIME 1 GM in SODIUM CHLORIDE 0.9% 50ML 50 ML IV SCH ×2 (08:16→21:09)
[2021-04-04] MEDS: DICYCLOMINE HCL 10 MG CAP PO SCH ×3 (08:16→21:09)
[2021-04-04] MEDS: HYDROMORPHONE 1MG/1ML INJ IV PRN (09:08)
[2021-04-04] MEDS: SODIUM CHLORIDE 0.9% 1000ML 1,000 ML IV SCH ×2 (10:36→17:23)
[2021-04-04] MEDS ORDERED: ACETAMINOPHEN 325 MG TAB PO PRN (17:00)
[2021-04-04] MEDS: METRONIDAZOLE 750MG/NS 150ML 150 ML IV SCH (17:23)
[2021-04-05] VITALS (8 sets, daily range): BP systolic 144–172; BP diastolic 65–79
[2021-04-05] MEDS: METOCLOPRAMIDE HCL 10 MG/2ML VIAL IV SCH ×4 (06:00→17:06)
[2021-04-05] MEDS: SODIUM CHLORIDE 0.9% 1000ML 1,000 ML IV SCH ×2 (06:13→17:05)
[2021-04-05 06:48] LABS: ALBUMIN 3.1 g/dL (3.5-5.0); ALBUMIN/GLOBULIN RATIO 1.3 (0.8-2.0); ANION GAP 16.1 mmol/L (8-16); CALCIUM 7.7 mg/dL (8.4-10.2); CREATININE, SERUM 0.55 mg/dL (0.57-1.11); POTASSIUM 3.1 mmol/L (3.5-5.1)
[2021-04-05] MEDS ORDERED: POTASSIUM CHLORIDE 20MEQ/100ML 100 ML IV ONE ×3 (07:15→22:00)
[2021-04-05] MEDS: CEFEPIME 1 GM in SODIUM CHLORIDE 0.9% 50ML 50 ML IV SCH ×2 (08:35→21:30)
[2021-04-05] MEDS: DICYCLOMINE HCL 10 MG CAP PO SCH ×3 (08:35→21:00)
[2021-04-05] MEDS: HYDROMORPHONE 1MG/1ML INJ IV PRN (10:32)
[2021-04-05] MEDS: ONDANSETRON HCL INJ 2MG/ML 2ML 2 MG/ML VIAL IV PRN ×2 (10:32→14:33)
[2021-04-05] MEDS ORDERED: DIATRIZOATE MEGL/DIATRIZOA SOD 30 ML BTL PO ONE (11:25)
[2021-04-05] MEDS ORDERED: SODIUM CHLORIDE 0.9% 50ML 50 ML ONE (11:25)
[2021-04-05] MEDS ORDERED: IOPAMIDOL 370 MG/ML 200 ML INFUS..BTL INJ ONE (11:25)
[2021-04-05] MEDS: SODIUM CHLORIDE 0.9% 250ML IRRIG IR SCH ×3 (15:00→23:00)
[2021-04-05] MEDS: METRONIDAZOLE 750MG/NS 150ML 150 ML IV SCH (17:06)
[2021-04-06] VITALS (7 sets, daily range): BP systolic 127–160; BP diastolic 67–79
[2021-04-06] MEDS: SODIUM CHLORIDE 0.9% 1000ML 1,000 ML IV SCH ×2 (00:05→04:45)
[2021-04-06] MEDS: METOCLOPRAMIDE HCL 10 MG/2ML VIAL IV SCH ×2 (00:05→05:46)
[2021-04-06] MEDS: SODIUM CHLORIDE 0.9% 250ML IRRIG IR SCH ×8 (03:00→23:15)
[2021-04-06 03:11] LABS: BASOPHILS # (AUTO) 0.1 (0.0-0.1); BASOPHILS % 0.4 % (0.0-1.0); EOSINOPHILS # (AUTO) 0.1 (0.0-0.4); EOSINOPHILS % 0.9 % (0.0-6.0); HEMATOCRIT 37.2 % (34.2-44.1); HEMOGLOBIN 12.5 g/dL (12.0-16.0); LYMPHOCYTES # (AUTO) 1.3 (1.0-3.2); LYMPHOCYTES % 11.5 % (18.0-39.1); MEAN CORPUSCULAR HGB CONC 33.6 g/dL (31-35); MEAN CORPUSCULAR VOLUME 89.4 fL (81-99); MONOCYTES % 8.6 % (4.4-11.3); NEUTROPHILS # (AUTO) 8.8 (2.1-6.9); NEUTROPHILS % 78.2 % (38.7-80.0); PLATELET COUNT 253 x10e3/uL (140-360); RED BLOOD COUNT 4.16 x10e6/uL (3.6-5.1); RED CELL DISTRIBUTION WIDTH 12.3 % (11.7-14.4)
[2021-04-06 03:27] LABS: ALANINE AMINOTRANSFERASE 14 IU/L (0-55); ALBUMIN 3.1 g/dL (3.5-5.0); ALBUMIN/GLOBULIN RATIO 1.2 (0.8-2.0); ALKALINE PHOSPHATASE 52 IU/L (40-150); ANION GAP 16.7 mmol/L (8-16); BLOOD UREA NITROGEN < 5 mg/dL (7-26); CALCIUM 8.2 mg/dL (8.4-10.2); CARBON DIOXIDE 19 mmol/L (22-29); CHLORIDE 105 mmol/L (98-107); CREATININE, SERUM 0.56 mg/dL (0.57-1.11); EST GLOMERULAR FILTRATION RATE 106 ML/MIN (60-); GLUCOSE 85 mg/dL (74-118); MAGNESIUM 1.7 MG/DL (1.3-2.1); POTASSIUM 3.7 mmol/L (3.5-5.1); SODIUM 137 mmol/L (136-145)
[2021-04-06 03:30] LABS: BUN/CREATININE RATIO 9 (6-25)
[2021-04-06] MEDS: HYDROMORPHONE 1MG/1ML INJ IV PRN (04:15)
[2021-04-06] MEDS: CEFEPIME 1 GM in SODIUM CHLORIDE 0.9% 50ML 50 ML IV SCH ×2 (08:23→20:42)
[2021-04-06] MEDS: ONDANSETRON HCL INJ 2MG/ML 2ML 2 MG/ML VIAL IV PRN (08:23)
[2021-04-06] MEDS: DICYCLOMINE HCL 10 MG CAP PO SCH (08:24)
[2021-04-06] MEDS ORDERED: NALOXONE HCL INJ 0.4 MG/ML AMP IV PRN (11:15)
[2021-04-06] MEDS ORDERED: DIPHENHYDRAMINE HCL 25 MG CAP PO PRN (11:15)
[2021-04-06] MEDS ORDERED: FENTANYL CITRATE/PF 100MCG/2 ML INJ ONE ×2 (11:38→13:31)
[2021-04-06] MEDS: HYDROMORPHONE 0.2MG/ML-SOD CHL 30ML PCA SYRINGE IV PRN (11:41)
[2021-04-06] MEDS ORDERED: HYDROMORPHONE 0.2MG/ML-SOD CHL 30ML PCA SYRINGE IV ONE (11:42)
[2021-04-06] MEDS: D5.45%NS/KCL 20MEQ 1,000 ML IV SCH (13:00)
[2021-04-06] MEDS ORDERED: MORPHINE SULFATE INJ 10 MG/ML ONE (13:31)
[2021-04-06] MEDS ORDERED: DEXAMETHASONE SOD PHOS INJ 4 MG/ML VIAL ONE (13:38)
[2021-04-06] MEDS ORDERED: NEOSTIGMINE 1 MG/ML 10ML VIAL ONE (13:38)
[2021-04-06] MEDS ORDERED: GLYCOPYRROLATE INJ 0.2 MG/ML VIAL ONE (13:38)
[2021-04-06] MEDS ORDERED: ROCURONIUM BROMIDE 10 MG/ML 5ML VIAL IV ONE (13:38)
[2021-04-06] MEDS ORDERED: LIDOCAINE HCL 2% LOCAL INJ 5 ML SDV VIAL INJ ONE (13:38)
[2021-04-06] MEDS ORDERED: PROPOFOL IV EMULSION 10 MG/ML 20 ML VIAL ONE (13:38)
[2021-04-06] MEDS ORDERED: DESFLURANE 240 ML BTL INH ONE (13:38)
[2021-04-06] MEDS ORDERED: ONDANSETRON HCL INJ 2MG/ML 2ML 2 MG/ML VIAL ONE (13:38)
[2021-04-06] MEDS ORDERED: POVIDONE IODINE 0.05% 0.05 % ML PO ONE (13:38)
[2021-04-07] VITALS (8 sets, daily range): BP systolic 129–169; BP diastolic 58–72
[2021-04-07] MEDS: ONDANSETRON HCL INJ 2MG/ML 2ML 2 MG/ML VIAL IV PRN ×2 (00:10→08:39)
[2021-04-07] MEDS: D5.45%NS/KCL 20MEQ 1,000 ML IV SCH ×3 (03:00→17:15)
[2021-04-07] MEDS: SODIUM CHLORIDE 0.9% 250ML IRRIG IR SCH ×8 (03:00→23:18)
[2021-04-07] MEDS: KETOROLAC TROMETHAMINE 30 MG/ML VIAL IV PRN ×4 (03:09→21:15)
[2021-04-07 05:24] LABS: BASOPHILS % 0.1 % (0.0-1.0); EOSINOPHILS # (AUTO) 0.1 (0.0-0.4); EOSINOPHILS % 0.4 % (0.0-6.0); HEMATOCRIT 36.6 % (34.2-44.1); HEMOGLOBIN 12.4 g/dL (12.0-16.0); LYMPHOCYTES # (AUTO) 1.1 (1.0-3.2); MEAN CORPUSCULAR HEMOGLOBIN 30.5 pg (28-32); MEAN CORPUSCULAR HGB CONC 33.9 g/dL (31-35); MEAN CORPUSCULAR VOLUME 90.1 fL (81-99); MONOCYTES # (AUTO) 1.1 (0.2-0.8); MONOCYTES % 7.7 % (4.4-11.3); NEUTROPHILS # (AUTO) 11.5 (2.1-6.9); NEUTROPHILS % 83.2 % (38.7-80.0); PLATELET COUNT 248 x10e3/uL (140-360); RED BLOOD COUNT 4.06 x10e6/uL (3.6-5.1); RED CELL DISTRIBUTION WIDTH 12.6 % (11.7-14.4)
[2021-04-07 06:01] LABS: ANION GAP 10.7 mmol/L (8-16); BLOOD UREA NITROGEN < 5 mg/dL (7-26); CALCIUM 8.3 mg/dL (8.4-10.2); CARBON DIOXIDE 25 mmol/L (22-29); CHLORIDE 102 mmol/L (98-107); CREATININE, SERUM 0.53 mg/dL (0.57-1.11); EST GLOMERULAR FILTRATION RATE 113 ML/MIN (60-); GLUCOSE 141 mg/dL (74-118); POTASSIUM 3.7 mmol/L (3.5-5.1); SODIUM 134 mmol/L (136-145)
[2021-04-07 06:02] LABS: BUN/CREATININE RATIO 9 (6-25)
[2021-04-07] MEDS: HYDROMORPHONE 0.2MG/ML-SOD CHL 30ML PCA SYRINGE IV PRN (07:06)
[2021-04-07] MEDS: CEFEPIME 1 GM in SODIUM CHLORIDE 0.9% 50ML 50 ML IV SCH ×2 (08:38→21:15)
[2021-04-08] VITALS (8 sets, daily range): BP systolic 124–155; BP diastolic 63–91
[2021-04-08] MEDS: D5.45%NS/KCL 20MEQ 1,000 ML IV SCH ×2 (02:21→15:37)
[2021-04-08] MEDS: SODIUM CHLORIDE 0.9% 250ML IRRIG IR SCH ×6 (03:32→23:54)
[2021-04-08 05:39] LABS: BASOPHILS % 0.3 % (0.0-1.0); EOSINOPHILS # (AUTO) 0.3 (0.0-0.4); HEMATOCRIT 34.4 % (34.2-44.1); HEMOGLOBIN 11.4 g/dL (12.0-16.0); LYMPHOCYTES % 10.5 % (18.0-39.1); MEAN CORPUSCULAR HEMOGLOBIN 30.1 pg (28-32); MEAN CORPUSCULAR HGB CONC 33.1 g/dL (31-35); MEAN CORPUSCULAR VOLUME 90.8 fL (81-99); MONOCYTES # (AUTO) 0.6 (0.2-0.8); MONOCYTES % 6.1 % (4.4-11.3); NEUTROPHILS # (AUTO) 7.3 (2.1-6.9); NEUTROPHILS % 79.4 % (38.7-80.0); PLATELET COUNT 207 x10e3/uL (140-360); RED BLOOD COUNT 3.79 x10e6/uL (3.6-5.1); RED CELL DISTRIBUTION WIDTH 12.6 % (11.7-14.4)
[2021-04-08 06:20] LABS: ALANINE AMINOTRANSFERASE 9 IU/L (0-55); ALBUMIN 2.4 g/dL (3.5-5.0); ALKALINE PHOSPHATASE 45 IU/L (40-150); ANION GAP 8.6 mmol/L (8-16); BLOOD UREA NITROGEN < 5 mg/dL (7-26); BUN/CREATININE RATIO 10 (6-25); CALCIUM 8.2 mg/dL (8.4-10.2); CARBON DIOXIDE 29 mmol/L (22-29); CHLORIDE 102 mmol/L (98-107); EST GLOMERULAR FILTRATION RATE 121 ML/MIN (60-); GLUCOSE 131 mg/dL (74-118); MAGNESIUM 1.5 MG/DL (1.3-2.1); POTASSIUM 3.6 mmol/L (3.5-5.1); SODIUM 136 mmol/L (136-145)
[2021-04-08] MEDS: ONDANSETRON HCL INJ 2MG/ML 2ML 2 MG/ML VIAL IV PRN ×2 (06:35→20:27)
[2021-04-08] MEDS: KETOROLAC TROMETHAMINE 30 MG/ML VIAL IV PRN ×2 (06:36→18:12)
[2021-04-08] MEDS: CEFEPIME 1 GM in SODIUM CHLORIDE 0.9% 50ML 50 ML IV SCH ×2 (09:42→20:26)
[2021-04-08] MEDS ORDERED: CHLORASEPTIC SPRAY 177 ML BTL MM PRN (16:15)
[2021-04-08] MEDS: HYDROMORPHONE 1MG/1ML INJ IV PRN (20:26)
[2021-04-09] MEDS: HYDROMORPHONE 1MG/1ML INJ IV PRN ×4 (00:48→20:00)
[2021-04-09] MEDS: ONDANSETRON HCL INJ 2MG/ML 2ML 2 MG/ML VIAL IV PRN ×4 (00:48→20:00)
[2021-04-09] MEDS: D5.45%NS/KCL 20MEQ 1,000 ML IV SCH ×3 (01:28→19:15)
[2021-04-09] MEDS: SODIUM CHLORIDE 0.9% 250ML IRRIG IR SCH ×6 (03:16→23:00)
[2021-04-09 05:05] VITALS: BP 143/78
[2021-04-09 07:14] VITALS: BP 143/78
[2021-04-09 07:40] VITALS: BP 167/73
[2021-04-09] MEDS: CEFEPIME 1 GM in SODIUM CHLORIDE 0.9% 50ML 50 ML IV SCH ×2 (08:34→20:03)
[2021-04-09 09:11] LABS: BASOPHILS % 0.4 % (0.0-1.0); EOSINOPHILS # (AUTO) 0.4 (0.0-0.4); EOSINOPHILS % 3.8 % (0.0-6.0); HEMATOCRIT 41.3 % (34.2-44.1); HEMOGLOBIN 13.7 g/dL (12.0-16.0); LYMPHOCYTES % 10.5 % (18.0-39.1); MEAN CORPUSCULAR HEMOGLOBIN 30.4 pg (28-32); MEAN CORPUSCULAR HGB CONC 33.2 g/dL (31-35); MEAN CORPUSCULAR VOLUME 91.6 fL (81-99); MONOCYTES # (AUTO) 0.5 (0.2-0.8); MONOCYTES % 5.3 % (4.4-11.3); NEUTROPHILS # (AUTO) 7.5 (2.1-6.9); NEUTROPHILS % 79.7 % (38.7-80.0); PLATELET COUNT 276 x10e3/uL (140-360); RED BLOOD COUNT 4.51 x10e6/uL (3.6-5.1); RED CELL DISTRIBUTION WIDTH 12.4 % (11.7-14.4)
[2021-04-09 09:34] LABS: ANION GAP 15.7 mmol/L (8-16); BLOOD UREA NITROGEN < 5 mg/dL (7-26); CALCIUM 8.4 mg/dL (8.4-10.2); CARBON DIOXIDE 28 mmol/L (22-29); CHLORIDE 99 mmol/L (98-107); CREATININE, SERUM 0.53 mg/dL (0.57-1.11); EST GLOMERULAR FILTRATION RATE 113 ML/MIN (60-); GLUCOSE 119 mg/dL (74-118); POTASSIUM 3.7 mmol/L (3.5-5.1); SODIUM 139 mmol/L (136-145)
[2021-04-09 09:49] LABS: BUN/CREATININE RATIO 9 (6-25)
[2021-04-09] MEDS: KETOROLAC TROMETHAMINE 30 MG/ML VIAL IV PRN (11:10)
[2021-04-09 11:39] VITALS: BP 175/77
[2021-04-09 16:22] VITALS: BP 151/78
[2021-04-09 20:00] VITALS: BP 156/67
[2021-04-10] VITALS (8 sets, daily range): BP systolic 129–159; BP diastolic 69–91
[2021-04-10] MEDS: ONDANSETRON HCL INJ 2MG/ML 2ML 2 MG/ML VIAL IV PRN ×2 (04:20→09:22)
[2021-04-10] MEDS: SODIUM CHLORIDE 0.9% 250ML IRRIG IR SCH ×2 (04:20→07:12)
[2021-04-10] MEDS: HYDROMORPHONE 1MG/1ML INJ IV PRN ×4 (04:20→23:53)
[2021-04-10] MEDS: D5.45%NS/KCL 20MEQ 1,000 ML IV SCH ×2 (04:20→16:27)
[2021-04-10] MEDS: CEFEPIME 1 GM in SODIUM CHLORIDE 0.9% 50ML 50 ML IV SCH ×2 (09:22→21:03)
[2021-04-11] VITALS (8 sets, daily range): BP systolic 109–153; BP diastolic 54–76
[2021-04-11] MEDS: D5.45%NS/KCL 20MEQ 1,000 ML IV SCH ×3 (01:51→23:00)
[2021-04-11] MEDS: CEFEPIME 1 GM in SODIUM CHLORIDE 0.9% 50ML 50 ML IV SCH ×2 (08:20→21:23)
[2021-04-11] MEDS: HYDROMORPHONE 1MG/1ML INJ IV PRN ×2 (12:55→23:00)
[2021-04-11] MEDS: BISACODYL 10 MG SUPP PR SCH (21:23)
[2021-04-12] VITALS (8 sets, daily range): BP systolic 121–144; BP diastolic 58–74
[2021-04-12] MEDS: LIOTHYRONINE SODIUM 5 MCG TAB PO SCH (06:01)
[2021-04-12] MEDS: D5.45%NS/KCL 20MEQ 1,000 ML IV SCH ×2 (08:24→23:23)
[2021-04-12] MEDS: LEVOTHYROXINE SODIUM 75 MCG TAB PO SCH (08:24)
[2021-04-12] MEDS: BISACODYL 10 MG SUPP PR SCH (08:24)
[2021-04-12] MEDS: HYDROCODONE/APAP 5MG-325MG TAB PO PRN ×2 (13:07→20:05)
[2021-04-13] VITALS (7 sets, daily range): BP systolic 112–147; BP diastolic 58–66
[2021-04-13] MEDS: LIOTHYRONINE SODIUM 5 MCG TAB PO SCH (05:24)
[2021-04-13 05:42] LABS: BASOPHILS # (AUTO) 0.1 (0.0-0.1); BASOPHILS % 1.4 % (0.0-1.0); EOSINOPHILS # (AUTO) 0.4 (0.0-0.4); EOSINOPHILS % 7.3 % (0.0-6.0); HEMATOCRIT 37.2 % (34.2-44.1); HEMOGLOBIN 11.9 g/dL (12.0-16.0); LYMPHOCYTES # (AUTO) 1.3 (1.0-3.2); LYMPHOCYTES % 22.9 % (18.0-39.1); MEAN CORPUSCULAR HEMOGLOBIN 29.8 pg (28-32); MONOCYTES # (AUTO) 0.6 (0.2-0.8); MONOCYTES % 10.7 % (4.4-11.3); NEUTROPHILS # (AUTO) 3.3 (2.1-6.9); NEUTROPHILS % 56.5 % (38.7-80.0); PLATELET COUNT 304 x10e3/uL (140-360); RED CELL DISTRIBUTION WIDTH 12.7 % (11.7-14.4)
[2021-04-13 06:16] LABS: ALANINE AMINOTRANSFERASE 11 IU/L (0-55); ALBUMIN 2.9 g/dL (3.5-5.0); ALBUMIN/GLOBULIN RATIO 1.1 (0.8-2.0); ALKALINE PHOSPHATASE 51 IU/L (40-150); ANION GAP 11.2 mmol/L (8-16); BLOOD UREA NITROGEN < 5 mg/dL (7-26); CALCIUM 8.7 mg/dL (8.4-10.2); CARBON DIOXIDE 24 mmol/L (22-29); CHLORIDE 105 mmol/L (98-107); CREATININE, SERUM 0.54 mg/dL (0.57-1.11); EST GLOMERULAR FILTRATION RATE 111 ML/MIN (60-); GLUCOSE 93 mg/dL (74-118); MAGNESIUM 1.6 MG/DL (1.3-2.1); POTASSIUM 4.2 mmol/L (3.5-5.1); SODIUM 136 mmol/L (136-145)
[2021-04-13 06:22] LABS: BUN/CREATININE RATIO 9 (6-25)
[2021-04-13] MEDS: LEVOTHYROXINE SODIUM 75 MCG TAB PO SCH (08:30)
[2021-04-13] MEDS: ONDANSETRON HCL INJ 2MG/ML 2ML 2 MG/ML VIAL IV PRN (16:01)
[2021-04-13] MEDS: D5.45%NS/KCL 20MEQ 1,000 ML IV SCH (17:30)
[2021-04-13] MEDS: HYDROMORPHONE 1MG/1ML INJ IV PRN (22:02)
[2021-04-14] VITALS: BP 102/83
[2021-04-14 04:00] VITALS: BP 115/59
[2021-04-14 04:42] LABS: BASOPHILS # (AUTO) 0.1 (0.0-0.1); BASOPHILS % 0.9 % (0.0-1.0); EOSINOPHILS # (AUTO) 0.3 (0.0-0.4); EOSINOPHILS % 4.6 % (0.0-6.0); HEMATOCRIT 37.1 % (34.2-44.1); HEMOGLOBIN 12.2 g/dL (12.0-16.0); LYMPHOCYTES # (AUTO) 1.2 (1.0-3.2); LYMPHOCYTES % 18.3 % (18.0-39.1); MEAN CORPUSCULAR HEMOGLOBIN 30.7 pg (28-32); MEAN CORPUSCULAR HGB CONC 32.9 g/dL (31-35); MEAN CORPUSCULAR VOLUME 93.2 fL (81-99); MONOCYTES # (AUTO) 0.8 (0.2-0.8); MONOCYTES % 11.9 % (4.4-11.3); NEUTROPHILS # (AUTO) 4.1 (2.1-6.9); NEUTROPHILS % 63.4 % (38.7-80.0); PLATELET COUNT 323 x10e3/uL (140-360); RED BLOOD COUNT 3.98 x10e6/uL (3.6-5.1); RED CELL DISTRIBUTION WIDTH 12.6 % (11.7-14.4)
[2021-04-14 05:03] LABS: ANION GAP 10.2 mmol/L (8-16); CALCIUM 8.8 mg/dL (8.4-10.2); CREATININE, SERUM 0.59 mg/dL (0.57-1.11); POTASSIUM 4.2 mmol/L (3.5-5.1)
[2021-04-14] MEDS: LIOTHYRONINE SODIUM 5 MCG TAB PO SCH (05:29)
[2021-04-14] MEDS: HYDROCODONE/APAP 5MG-325MG TAB PO PRN ×2 (05:40→10:00)
[2021-04-14] MEDS ORDERED: LEVOTHYROXINE SODIUM 75 MCG TAB PO SCH (06:00)
[2021-04-14 08:21] VITALS: BP 117/67
[2021-04-14 08:58] VITALS: BP 117/67
[2021-04-14] MEDS: D5.45%NS/KCL 20MEQ 1,000 ML IV SCH (09:40)
[2021-04-14] MEDS ORDERED: ULTRAM50 MG PO (10:29)
[2021-04-14] MEDS ORDERED: PANTOPRAZOLE SO40 MG PO (10:29)
[2021-04-14 11:47] VITALS: BP 109/59
[2021-04-14] MEDS ORDERED: ONDANSETRON HCL 4 MG ORAL DISINTEGRATING TAB PO PRN (12:45)
[2021-04-14] MEDS ORDERED: PANTOPRAZOLE SOD 40 MG TABEC PO SCH (16:30)
== END 2021-04-14 12:44 | disposition home or self-care (01) | DRG 345 ==
LOC: ER 13:50 → ERHOLD 17:04 → MED/SURG3 18:34 → MED/SURG 04-07 18:34
PROVIDERS: ADMIT Internal Medicine; ATTEND Internal Medicine
PROC: 0DJD4ZZ Inspection of Lower Intestinal Tract, Percutaneous Endoscopic Approach (ICD-10-PCS; principal; 2021-04-06 09:00)
DX: K56.52 Intestinal adhesions [bands] with complete obstruction (principal); E44.1 Mild protein-calorie malnutrition; Z68.21 Body mass index [BMI] 21.0-21.9, adult; E87.6 Hypokalemia; K52.9 Noninfective gastroenteritis and colitis, unspecified; F41.9 Anxiety disorder, unspecified; I10 Essential (primary) hypertension; K21.9 Gastro-esophageal reflux disease without esophagitis; Z20.822 Contact with and (suspected) exposure to COVID-19
CPT/HCPCS: 36415; 74019; 74177; 80048; 80053; 81001; 82948; 83690; 83735; 84484; 85025; 85651; 86140; 86256; 86671; 88307; 93005; 96361; 99251; 99284; J0692; J1100; J1170; J1200; J1885; J1956; J2001; J2060; J2270; J2405; J2710; J2765; J3010; J3480; J7030; Q9967; U0002

== ENCOUNTER → 2022-04-29 | Outpatient (CLI) | payer OTHER, MEDICARE ==
[~2022-04-29] MED LIST changes: +DIATRIZOATE MEGL/DIATRIZOA SOD 30 ML BTL PO ONE; +HYALURONIC ACI1 EACH PO; +IOPAMIDOL 370 MG/ML 100 ML INFUS..BTL INJ ONE; +PANTOPRAZOLE SO40 MG PO; +ULTRAM50 MG PO; +VIT A PO; +VIT B12 PO; +VIT E PO
[2022-04-29 12:31] LABS: CREATININE, SERUM 0.64 mg/dL (0.57-1.11)
== END ==
LOC: CT 10:56
PROVIDERS: ATTEND Internal Medicine Gastroenterology
DX: R10.32 Left lower quadrant pain (principal); R11.0 Nausea
CPT/HCPCS: 36415; 74177; 82565; 84520; Q9963; Q9967

== ENCOUNTER → 2022-05-04 | Day surgery (SDC) | payer OTHER, MEDICARE ==
[2022-04-29 11:31] LABS: BASOPHILS % 0.7 % (0.0-1.0); EOSINOPHILS # (AUTO) 0.1 (0.0-0.4); EOSINOPHILS % 1.2 % (0.0-6.0); HEMOGLOBIN 12.5 g/dL (12.0-16.0); LYMPHOCYTES # (AUTO) 1.9 (1.0-3.2); LYMPHOCYTES % 32.2 % (18.0-39.1); MEAN CORPUSCULAR HEMOGLOBIN 30.2 pg (28-32); MEAN CORPUSCULAR HGB CONC 32.1 g/dL (31-35); MEAN CORPUSCULAR VOLUME 94.2 fL (81-99); MONOCYTES # (AUTO) 0.4 (0.2-0.8); NEUTROPHILS # (AUTO) 3.4 (2.1-6.9); NEUTROPHILS % 58.7 % (38.7-80.0); PLATELET COUNT 261 x10e3/uL (140-360); RED BLOOD COUNT 4.14 x10e6/uL (3.6-5.1); RED CELL DISTRIBUTION WIDTH 12.9 % (11.7-14.4)
[~2022-05-04] MED LIST changes: -DIATRIZOATE MEGL/DIATRIZOA SOD 30 ML BTL PO ONE; +FENTANYL CITRATE/PF 100MCG/2 ML INJ ONE; +GLUCAGON FOR INJ 1 MG VIAL ONE; +HYOSCYAMINE SULFATE 0.5 MG/ML INJ ONE; -IOPAMIDOL 370 MG/ML 100 ML INFUS..BTL INJ ONE; +LIDOCAINE HCL 2% LOCAL INJ 5 ML SDV VIAL INJ ONE; +MIDAZOLAM HCL 2 MG/2 ML VIAL ONE
[2022-05-04 15:40] VITALS: BP 131/75
[2022-05-04 16:02] LABS: WBC,FECAL (FECAL LACTOFERRIN) NEGATIVE (NEGATIVE)
== END | disposition home or self-care (01) ==
LOC: OR 11:21
PROVIDERS: ATTEND Internal Medicine Gastroenterology
DX: K52.9 Noninfective gastroenteritis and colitis, unspecified (principal); D12.2 Benign neoplasm of ascending colon; Z98.0 Intestinal bypass and anastomosis status; K62.89 Other specified diseases of anus and rectum; K64.8 Other hemorrhoids; K21.9 Gastro-esophageal reflux disease without esophagitis; K44.9 Diaphragmatic hernia without obstruction or gangrene; Z71.3 Dietary counseling and surveillance; K76.0 Fatty (change of) liver, not elsewhere classified; E03.9 Hypothyroidism, unspecified; F41.9 Anxiety disorder, unspecified; F32.A Depression, unspecified; R55 Syncope and collapse; E16.2 Hypoglycemia, unspecified; Z88.1 Allergy status to other antibiotic agents; Z91.018 Allergy to other foods; Z01.810 Encounter for preprocedural cardiovascular examination; Z01.812 Encounter for preprocedural laboratory examination; Z20.822 Contact with and (suspected) exposure to COVID-19; Z79.899 Other long term (current) drug therapy; Z80.0 Family history of malignant neoplasm of digestive organs
CPT/HCPCS: 0223U; 36415; 45380; 45384; 83630; 83993; 85025; 86140; 86256; 86671; 87045; 87177; 87324; 87328; 87449; 87493; 93005; J1610; J1980; J2001; J2250; J3010

== ENCOUNTER 2023-01-20 06:29 | Emergency (ER) | payer OTHER, MEDICARE ==
[~2023-01-20] VITALS: Ht 162.6 cm; Wt 55.8 kg
[~2023-01-20 06:29] MED LIST changes: -FENTANYL CITRATE/PF 100MCG/2 ML INJ ONE; -GLUCAGON FOR INJ 1 MG VIAL ONE; -HYOSCYAMINE SULFATE 0.5 MG/ML INJ ONE; -LIDOCAINE HCL 2% LOCAL INJ 5 ML SDV VIAL INJ ONE; -MIDAZOLAM HCL 2 MG/2 ML VIAL ONE
[2023-01-20] MEDS ORDERED: KETOROLAC TROMETHAMINE 30 MG/ML VIAL ONE (06:55)
[2023-01-20] MEDS ORDERED: KETOROLAC TROMETHAMINE 30 MG/ML VIAL IM ONE (07:00)
[2023-01-20] MEDS ORDERED: LIDOCAINE 4% PATCH TP ONE (07:00)
[2023-01-20] MEDS ORDERED: CELEBREX100 MG PO (08:08)
== END 2023-01-20 08:18 | disposition home or self-care (01) ==
LOC: ER 06:45
DX: M25.562 Pain in left knee (principal); F41.9 Anxiety disorder, unspecified; K21.9 Gastro-esophageal reflux disease without esophagitis
CPT/HCPCS: 73562; 99283; J1885

== ENCOUNTER → 2023-03-04 | Day surgery (SDC) | payer OTHER, MEDICARE ==
[2023-03-03 13:38] LABS: BASOPHILS # (AUTO) 0.1 (0.0-0.1); BASOPHILS % 0.8 % (0.0-1.0); EOSINOPHILS # (AUTO) 0.1 (0.0-0.4); LYMPHOCYTES # (AUTO) 1.8 (1.0-3.2); LYMPHOCYTES % 31.2 % (18.0-39.1); MEAN CORPUSCULAR HGB CONC 32.5 g/dL (31-35); MEAN CORPUSCULAR VOLUME 92.2 fL (81-99); MONOCYTES # (AUTO) 0.6 (0.2-0.8); MONOCYTES % 9.3 % (4.4-11.3); NEUTROPHILS # (AUTO) 3.3 (2.1-6.9); NEUTROPHILS % 56.4 % (38.7-80.0); PLATELET COUNT 280 x10e3/uL (140-360); RED BLOOD COUNT 4.34 x10e6/uL (3.6-5.1)
[~2023-03-04] MED LIST changes: +ACETAMINOPHEN 1000 MG/100 ML 100 ML IV ONE; +BIOTIN1 MG PO; +BUPIVACAINE HCL 0.5% INJ 30 ML VIAL INJ ONE; +CALCIUM500 MG PO; +CEFAZOLIN SODIUM 2 GM ONE; +CELEBREX100 MG PO; +DEXAMETHASONE SOD PHOS INJ 4 MG/ML SDV ONE; +FENTANYL CITRATE/PF 100MCG/2 ML INJ ONE; +HYDROCODONE/APAP 7.5MG-325MG 1 EA TAB ONE; +HYDROCODONE/APAP 7.5MG-325MG 1 EA TAB PO ONE; +KETOROLAC TROMETHAMINE 30 MG/ML VIAL ONE; +LACTATED RINGER'S 1,000 ML ONE; +LIDOCAINE 1% W/EPINEPHRINE 20 ML VIAL ONE; +LIDOCAINE HCL 2% LOCAL INJ 5 ML SDV VIAL INJ ONE; +MAGNESIUM PO; +ONDANSETRON HCL INJ 2MG/ML 2ML 2 MG/ML VIAL ONE; +POVIDONE IODINE 0.05% 0.05 % ML PO ONE; +PROPOFOL IV EMULSION 10 MG/ML 20 ML VIAL ONE; +SEVOFLURANE INHAL SOLN 250 ML PEN BTL ONE; +VITAMIN D31250 MCG PO; +VITAMIN K2100 MCG PO
[2023-03-04] MEDS: FENTANYL CITRATE/PF 100MCG/2 ML INJ ONE ×2 (11:13→11:20)
[2023-03-04 12:15] VITALS: BP 139/69; PULSE 61; RESP 16; O2SAT 99
== END | disposition home or self-care (01) ==
LOC: OR 05:47
PROVIDERS: ATTEND Orthopaedic Surgery
DX: S83.232A Complex tear of medial meniscus, current injury, left knee, initial encounter (principal); S83.282A Other tear of lateral meniscus, current injury, left knee, initial encounter; M84.462A Pathological fracture, left tibia, initial encounter for fracture; D75.89 Other specified diseases of blood and blood-forming organs; M22.42 Chondromalacia patellae, left knee; M67.52 Plica syndrome, left knee; M17.12 Unilateral primary osteoarthritis, left knee; M51.36 Other intervertebral disc degeneration, lumbar region; M47.816 Spondylosis without myelopathy or radiculopathy, lumbar region; M81.0 Age-related osteoporosis without current pathological fracture; E03.9 Hypothyroidism, unspecified; K21.9 Gastro-esophageal reflux disease without esophagitis; K44.9 Diaphragmatic hernia without obstruction or gangrene; F32.A Depression, unspecified; X58.XXXA Exposure to other specified factors, initial encounter; Z88.8 Allergy status to other drugs, medicaments and biological substances; Z01.810 Encounter for preprocedural cardiovascular examination; Z01.812 Encounter for preprocedural laboratory examination; Z01.818 Encounter for other preprocedural examination; Z79.899 Other long term (current) drug therapy; Z82.62 Family history of osteoporosis; Z82.61 Family history of arthritis
CPT/HCPCS: 27899; 29880; 36415; 71046; 85025; 93005; C1713; J0131; J1100; J1885; J2001; J2405; J2704; J3010; J7121; 76000

== ENCOUNTER → 2023-04-04 | Outpatient (CLI) | payer OTHER, MEDICARE ==
[~2023-04-04] MED LIST changes: -ACETAMINOPHEN 1000 MG/100 ML 100 ML IV ONE; -BUPIVACAINE HCL 0.5% INJ 30 ML VIAL INJ ONE; -CEFAZOLIN SODIUM 2 GM ONE; -DEXAMETHASONE SOD PHOS INJ 4 MG/ML SDV ONE; -FENTANYL CITRATE/PF 100MCG/2 ML INJ ONE; -HYDROCODONE/APAP 7.5MG-325MG 1 EA TAB ONE; -HYDROCODONE/APAP 7.5MG-325MG 1 EA TAB PO ONE; +IOPAMIDOL 370 MG/ML 100 ML INFUS..BTL INJ ONE; -KETOROLAC TROMETHAMINE 30 MG/ML VIAL ONE; -LACTATED RINGER'S 1,000 ML ONE; -LIDOCAINE 1% W/EPINEPHRINE 20 ML VIAL ONE; -LIDOCAINE HCL 2% LOCAL INJ 5 ML SDV VIAL INJ ONE; -ONDANSETRON HCL INJ 2MG/ML 2ML 2 MG/ML VIAL ONE; -POVIDONE IODINE 0.05% 0.05 % ML PO ONE; -PROPOFOL IV EMULSION 10 MG/ML 20 ML VIAL ONE; -SEVOFLURANE INHAL SOLN 250 ML PEN BTL ONE
[2023-04-04 09:50] LABS: BLOOD UREA NITROGEN < 5 mg/dL (7-26); BUN/CREATININE RATIO 7 (6-25); CREATININE, SERUM 0.67 mg/dL (0.57-1.11)
== END ==
LOC: CT 08:11
PROVIDERS: ATTEND Nurse Practitioner
DX: R19.04 Left lower quadrant abdominal swelling, mass and lump (principal); K59.00 Constipation, unspecified
CPT/HCPCS: 36415; 74177; 82565; 84520; Q9967